=== PATIENT | male | born 1960 | race Caucasian/White ===

== ENCOUNTER 2018-11-04 09:48 | Outpatient (CLI) | payer OTHER, SELFPAY ==
[2018-11-04 11:42] LABS: CREATININE 0.93 mg/dL (0.70-1.30); Calculated LDL 57; Cholesterol 127 mg/dL (50-200); HDL Cholesterol 53 mg/dL (40-60); Potassium 4.8 mmol/L (3.5-5.1); Triglyceride 88 mg/dL (30-150)
== END 2018-11-04 10:08 ==
PROVIDERS: PCP Family Medicine; Visit Provider Family Medicine
DX: E11.65 Type 2 diabetes mellitus with hyperglycemia (principal)
CPT/HCPCS: 36415; 80061; 83721; 82565; 83036; 84132

== ENCOUNTER 2019-01-20 09:22 | Outpatient (CLI) | payer OTHER, SELFPAY ==
[2019-01-20 12:44] LABS: CREATININE 1.06 mg/dL (0.70-1.30); Potassium 4.7 mmol/L (3.5-5.1)
[2019-01-20 12:47] LABS: Hemoglobin A1C 7.5 % (4.5-6.2)
== END 2019-01-20 09:42 ==
PROVIDERS: PCP Family Medicine; Visit Provider Family Medicine
DX: E11.9 Type 2 diabetes mellitus without complications (principal)
CPT/HCPCS: 36415; 82565; 83036; 84132

== ENCOUNTER 2019-04-07 22:45 | Emergency (ER) | payer OTHER, SELFPAY ==
[2019-04-07 22:47] VITALS: BP 135/67; PULSE 113; TEMP 36.3; O2SAT 99
--- NOTE | 2019-04-07 23:02 | ED.GENADUL_ITS ---
Discharge Plan Disposition Patient Disposition: [facility] Condition: Stable Discharge Details Chief Complaint: Urinary Clinical Impression: Left testicular pain Primary Care Provider: Bulmaro Booker ED Provider: Fitz Mas Home Meds and New Rx's Prescriptions: No Action atorvastatin 20 mg tablet 20 mg PO QPM Qty: 90 RF: 3 citalopram 20 mg tablet 20 mg PO DAILY Qty: 90 RF: 4 glimepiride 2 mg tablet 2 mg PO DAILY Qty: 90 RF: 4 hydrochlorothiazide 12.5 mg tablet 12.5 mg PO DAILY Qty: 90 RF: 3 lisinopril 40 mg tablet 40 mg PO DAILY Qty: 90 RF: 4 Janumet 50-1,000 mg tablet 1 tab PO BID Qty: 180 RF: 3 terbinafine HCl 250 mg tablet 250 mg PO DAILY Qty: 28 RF: 0 terbinafine HCl 250 mg tablet 250 mg PO DAILY Qty: 30 RF: 0 TEST STRIP 1 EACH strip 1 ea Miscellaneous DAILY Qty: 90 RF: 4 aspirin [Aspir-Low] 81 MG tablet,delayed release (DR/EC) 1 tab PO DAILY RF: 0 (DME) OneTouch Ultra Test 1 EACH strip 1 ea Miscellaneous DAILY Qty: 90 RF: 4 Medical Decision Making 59 yo male comes in with intermittent left testicle pain that acutely worsened today. He arrives in obvious pain, denies fevers, has had n/v. On exam his left testicle is swollen, tender and I can't elicit a cremasteric reflex. I have high concern for torsion. I spoke with engineer technician and there are no availabe ultrasound techs tonight. Will consult with [facility] accepts in transfer for further management, accepting is dr. Springer. Pt updated on plan and agrees with plan Differential Diagnosis Differential Diagnosis: torsion, orchitis HPI General Mode of arrival: ambulatory . Date/Time Provider Initiated Documentation: 04/07/19 22:46 . Limitations to Documentation: no limitations . Information obtained by: patient . History of Present Illness 59 year old M presents to the emergency department with the chief complaint of testicle pain, described as moderate and severe, and it has been constant. No relieving factors improve symptom(s), No exacerbating factors reported . Patient did receive the following treatments prior to arrival, none Related Data Home Medications Medication Instructions Recorded Confirmed Test Strip 1 ea MISCELLANEOUS DAILY #90 strip 07/29/12 11/26/18 aspirin [Aspir-Low] 1 tab PO DAILY 10/13/13 11/26/18 blood sugar diagnostic [Onetouch #90 strip 09/21/14 11/26/18 Ultra Test Strips] atorvastatin 20 mg tablet 20 mg PO QPM #90 tab 11/26/18 11/26/18 citalopram 20 mg tablet 20 mg PO DAILY #90 tab-cap 11/26/18 11/26/18 glimepiride 2 mg tablet 2 mg PO DAILY #90 tab-cap 11/26/18 11/26/18 hydrochlorothiazide 12.5 mg tablet 12.5 mg PO DAILY #90 tab-cap 11/26/18 11/26/18 lisinopril 40 mg tablet 40 mg PO DAILY #90 tab-cap 11/26/18 11/26/18 sitagliptin 50 mg-metformin 1,000 1 tab PO BID #180 tab-cap 11/26/18 11/26/18 mg tablet terbinafine HCl 250 mg tablet 250 mg PO DAILY #28 tab 11/26/18 11/26/18 terbinafine HCl 250 mg tablet 250 mg PO DAILY #30 tab 11/26/18 11/26/18 Previous Rx's Medication Instructions Recorded atorvastatin 20 mg tablet 20 mg PO QPM #90 tab 11/26/18 citalopram 20 mg tablet 20 mg PO DAILY #90 tab-cap 11/26/18 glimepiride 2 mg tablet 2 mg PO DAILY #90 tab-cap 11/26/18 hydrochlorothiazide 12.5 mg tablet 12.5 mg PO DAILY #90 tab-cap 11/26/18 lisinopril 40 mg tablet 40 mg PO DAILY #90 tab-cap 11/26/18 sitagliptin 50 mg-metformin 1,000 1 tab PO BID #180 tab-cap 11/26/18 mg tablet terbinafine HCl 250 mg tablet 250 mg PO DAILY #28 tab 11/26/18 terbinafine HCl 250 mg tablet 250 mg PO DAILY #30 tab 11/26/18 Allergies Allergy/AdvReac Type Severity Reaction Status Date / Time No Known Allergies Allergy Unverified 04/07/19 22:55 General Stated Complaint: Urinary AMNA: 2 Review of Systems All systems reviewed & are unremarkable except as noted in HPI and below Constitutional Constitutional: Denies chills, Denies fever(s) and Denies weakness Cardiovascular Cardiovascular: Denies dyspnea Respiratory Respiratory: Denies cough and Denies dyspnea Gastrointestinal Gastrointestinal: Denies abdominal pain, Denies nausea and Denies vomiting Musculoskeletal Musculoskeletal: Denies joint swelling Neurologic Neurologic: Denies weakness PFSH Family History Mother Alzheimer disease Father Diabetes Brother Personal history of malignant neoplasm PROSTATE Exam Const General: other (in pain) Orientation: alert HENMT Head: normal to inspection Ears: external ears normal General nose exam: external nose normal Mouth: moist mucous membranes Eyes General: appearance normal, both eyes and all related structures Neck Neck: normal visual inspection Resp Effort & Inspection: normal respiratory effort and able to speak in complete sentences Cardio Rate: regular rate Penis: normal penis Scrotum: cremasteric reflex absent Skin General skin exam: no rashes or lesions noted Neuro General: alert and oriented x3 Extrem General: normal to inspection Psych Mental Status: mental status grossly normal Course Vital Signs Vital signs: Vital Signs Temperature 36.3 C L 04/07/19 22:47 Pulse 113 H 04/07/19 22:47 Pulse Oximetry 99 04/07/19 22:47 Temperature 36.3 C L 04/07/19 22:47 Pulse 113 H 04/07/19 22:47 Pulse Oximetry 99 04/07/19 22:47 Oxygen Delivery Method Room Air 04/07/19 22:47 Oxygen Flow Rate 0 04/07/19 22:47 Pain Level 10 04/07/19 22:47
[2019-04-07] MEDS: Ondansetron 4 MG/2 ML VIAL (23:06)
[2019-04-07 23:07] LABS: Bilirubin Negative (Negative); Blood Negative (Negative); Clarity Clear (Clear); Glucose Negative (Negative); Ketones Trace mg/dL (Negative); Leukocyte Esterase Negative (Negative); Nitrite Negative (Negative); pH 5.5 (5-8)
[2019-04-07] MEDS: Normal Saline 1,000 ML 1000 ML IV (23:08)
[2019-04-07] MEDS: Normal Saline Flush 10 ML SYR IVP (23:09)
[2019-04-07 23:17] LABS: Abs Immature Grans 0.04 k/cumm (0.0-0.09); Absolute Basophil Count 0.02 k/cumm (0.0-0.2); Absolute Eosinophil Count 0.14 k/cumm (0.0-0.7); Absolute Lymphocyte Count 2.51 k/cumm (1.2-3.4); Absolute Monocyte Count 1.99 k/cumm (0.11-0.7); Absolute Neutrophil Count 10.82 k/cumm (1.2-6.7); Basophils % 0.1; Eosinophils % 0.9; HCT 46.1 % (40.0-50.0); HGB 15.6 g/dL (13.5-17.5); Immature Grans % 0.3; Lymphocytes % 16.2; Mean Corp. HGB Concentration 33.8 g/dL (32.0-36.0); Mean Corpuscular Hemoglobin 30.5 pg (27.0-33.0); Monocytes % 12.8; Neutrophils % 69.7; Platelet Count 205 x1000/uL (130-400); RBC 5.12 m/cumm (4.50-6.00); RBC Distribution Width 12.8 % (11.8-14.1); White Blood Cell Count 15.52 k/cumm (4.4-10.8)
[2019-04-07] MEDS: Nicotine 21 MG/24 HR PATCH (23:24)
[2019-04-07] MEDS: MORPHine 10 MG/ML VIAL (23:25)
[2019-04-07 23:29] LABS: ALT 27 U/L (16-63); AST 13 U/L (15-37); Albumin 3.9 g/dL (3.4-5.0); Alkaline Phosphatase 92 U/L (46-116); Anion Gap 12.6 mmol/L (3-11); BUN 30 mg/dL (7-18); Bilirubin, Total 0.6 mg/dL (0.2-1.0); CO2 23.4 mmol/L (21.0-32.0); CREATININE 1.38 mg/dL (0.70-1.30); Calcium 9.5 mg/dL (8.5-10.1); Chloride 99 mmol/L (98-107); Estimated GFR 53.11 (mL/min/1.73m2); Glucose 179 mg/dL (70-100); Potassium 4.5 mmol/L (3.5-5.1); Sodium 135 mmol/L (136-145); Total Protein 7.7 g/dL (6.4-8.2)
[2019-04-07 23:32] LABS: Diff Comment Agrees w/ Instrument; RBC Morphology Normal
[2019-04-07 23:35] LABS: PTT Activated 25.9 sec (21.0-31.4)
[2019-04-07] MEDS: HYDROmorphone 2 MG/ML VIAL (23:41)
[2019-04-07 23:43] VITALS: BP 136/79; PULSE 118; RESP 21; O2SAT 99
== END 2019-04-07 23:35 | disposition short-term general hospital (02) ==
PROVIDERS: Emergency Provider Emergency Medicine; PCP Family Medicine
DX: N50.812 Left testicular pain (principal)
CPT/HCPCS: 80053; 96361; 96374; 96375; 96376; 99284; 81003; 85025; 85610; 85730; J2270; J2405

== ENCOUNTER 2019-05-27 09:41 | Outpatient (CLI) | payer OTHER, SELFPAY ==
[2019-05-27 12:47] LABS: Hemoglobin A1C 7.5 % (3.8-5.6)
[2019-05-27 12:48] LABS: CREATININE 0.81 mg/dL (0.70-1.30)
[2019-05-30 11:27] LABS: PSA, Screening 3.8 ng/mL (0.0-3.5)
== END 2019-05-27 10:01 ==
PROVIDERS: PCP Family Medicine; Visit Provider Family Medicine
DX: E11.9 Type 2 diabetes mellitus without complications (principal); Z12.5 Encounter for screening for malignant neoplasm of prostate
CPT/HCPCS: 36415; 84153; 82565; 83036

== ENCOUNTER 2020-01-27 01:20 | Outpatient (CLI) | payer OTHER, SELFPAY ==
[2020-01-27 13:01] LABS: Hemoglobin A1C 8.1 % (<5.7)
[2020-01-27 22:56] LABS: PSA, Diagnostic 3.2 ng/mL (0.0-3.5)
== END 2020-01-27 01:40 ==
PROVIDERS: PCP Family Medicine; Visit Provider Family Medicine
DX: R73.9 Hyperglycemia, unspecified (principal); C61 Malignant neoplasm of prostate
CPT/HCPCS: 36415; 83036; 84153

== ENCOUNTER 2020-09-14 17:24 | Outpatient (REF) | payer OTHER, SELFPAY ==
[2020-09-14 21:04] LABS: Hemoglobin A1C 9.1 % (<5.7)
[2020-09-14 21:07] LABS: CREATININE 1.1 mg/dL (0.70-1.30); Calculated LDL 82 mg/dL (<100); Cholesterol 164 mg/dL (<200); HDL Cholesterol 51 mg/dL (40-60); Triglyceride 158 mg/dL (<150)
== END 2020-09-14 17:25 | disposition home or self-care (01) ==
LOC: NCHCN 17:24
PROVIDERS: PCP Family Medicine; Visit Provider Family Medicine
DX: E78.5 Hyperlipidemia, unspecified (principal); I10 Essential (primary) hypertension; R73.9 Hyperglycemia, unspecified
CPT/HCPCS: 80061; 82565; 83036; 84132

== ENCOUNTER 2022-01-29 10:38 | Outpatient (REF) | payer OTHER, SELFPAY ==
[2022-01-29 22:59] LABS: Albumin ug/mg Crea 246 (<30)
== END 2022-01-29 10:39 | disposition home or self-care (01) ==
LOC: LBN 10:38
PROVIDERS: PCP Family Medicine; Visit Provider Family Medicine
DX: E11.9 Type 2 diabetes mellitus without complications (principal)
CPT/HCPCS: 82043; 82570

== ENCOUNTER 2022-07-10 16:24 | Outpatient (REF) | payer OTHER, SELFPAY ==
--- OUTSIDE RECORDS SUMMARY | 2022-07-10 16:28 | XMS_ITS ---
Author Name Hnanah Ceja Address [address], [place] [id number] Organization [facility] Address [address], [place] [id number] Care Team Providers Care Drawing In Machine Tender Name Role Phone Hannah Ceja Unavailable [phone] PROBLEMS Type Condition ICD9-CM Code [id number] Code Onset Dates Condition Status SNOMED Code Problem Diverticulosis 562.10 Active 595882815 Problem Colon Polyp 211.3 Active 47299935 Problem Internal hemorrhoids 455.0 Active 48965970 ALLERGIES No Known Allergies ENCOUNTERS Encounter Location Date Diagnosis [facility] Department [address] [place] [id number] Jan, Encounter for other administrative examinations [address]02.[address] [place] [address] [place] [id number] Jan, Encounter for other administrative examinations Z02.[address] [address] Occupational [facility] Department [address] [place] [address] [id number] Oct, Encounter for other administrative examinations [address] [place] [address] [place] [address] [id number] Oct, Encounter for other administrative examinations [address] [place] [address] [place] [id number] Aug, Encounter for other administrative examinations Z02. [facility]. [address], [address] [place], [place] [id number] Aug, [facility] [address] [place] [address] [id number] May, Encounter for other administrative examinations Z02.89 [facility] Department [address], [place] [id number] Dec, Encounter for other administrative examinations Z02.89 [facility] [address] [id number] Jan, Colon Polyp 211.3 ; Diverticulosis 562.10 and Internal hemorrhoids 455.[address] [id number] Nov, Colon Polyp 211.3 ; Rectal polyp 569.0 ; Diverticulosis 562.10 and Internal hemorrhoids 455.0 [facility] [address] [id number] Nov, [facility] [address] [id number] Oct, [facility] [address] [id number] Oct, [facility] [address] [id number] Oct, [facility] [address] [id number] September, IMMUNIZATIONS No Known Immunizations SOCIAL HISTORY Never Assessed REASON FOR REFERRAL FUNCTIONAL STATUS PLAN OF CARE VITAL SIGNS Height 5 ft 8 in in 2015-02-09 Weight 202 lbs 2015-02-09 Heart Rate 72 /min 2015-02-09 Respiratory Rate 16 /min 2015-02-09 BMI 30.71 kg/m2 2015-02-09 Blood pressure systolic 134 mm Hg Blood pressure diastolic 79 mm Hg 2015-01 MEDICATIONS Medication Instructions Dosage Frequency Start Date End Date Duration Status SITagliptin-metFORMIN HCl 50-1000 MG Orally Twice a day 1 tablet with meals 12h 30 day(s) Active Semaglutide(0.25 or 0.5MG/DOS) 2 MG/1.5ML as directed Active Aspirin 81 MG Orally Once a day 1 tablet 24h Active Terbinafine HCl 250 MG Orally Once a day 1 tablet 24h 10 day(s) Active metFORMIN HCl 1000 MG Orally Once a day 1 tablet with meals 24h Not-Sang ing hydroCHLOROthiazide 12.5 MG Orally Once a day 1 capsule in the morning 24h 30 day(s) Active Citalopram Hydrobromide 20 MG Orally Once a day 1 tablet 24h Active Glimepiride 2 MG Orally Once a day 1 tablet with breakfast or the first main meal of the day 24h Active One touch ultra test strips as directed Active Lisinopril 40 MG Orally Once a day 1 tablet 24h 30 day(s) Active Atorvastatin Calcium 20 MG Orally Once a day 1 tablet 24h Active PROCEDURES Procedure Date Ordered Result Body Site OCD Breath Alcohol Drug Testing May 31, 2020 OCD Urine Drug Screen (collection only) September 05, 2021 COLONOSCOPY & COLD BIOPSY POLYPECTOMY December 14, 2014 COLONOSCOPY SNARE POLYPEC December 14, 2014 OCD Urine Drug Screen (collection only) May 31, 2020 OCD Breath Alcohol Drug Testing Feb 07, 2022 OCD Urine Drug Screen (collection only) Feb 07, 2022 OCD Urine Drug Screen (collection only) Jan 18, 2020 OCD Breath Alcohol Drug Testing November 15, 2021 OCD Urine Drug Screen (collection only) November 15, 2021 RESULTS Name Result Date Reference Range OCD BREATH ALCOHOL DRUG TESTING 2022-01-23 6 OCD URINE COLLECTION 2022-02-07 OCD BREATH ALCOHOL DRUG TESTING 2021-10-24 4 OCD URINE COLLECTION 2021-11-15 OCD URINE COLLECTION 2020-05-31 OCD BREATH ALCOHOL DRUG TESTING 7 OCD URINE COLLECTION 2020-01-18 Colonoscopy REASON FOR VISIT BAT, OCC bat, occ udc, OCC udc , OCC bat, OCC bat, OCC udc, OCC udc , OCC udc, OCC udc , ENT VESSEL SLAGMAN Lesion of nostril, Chart Preload, OCC udc and bat, OCC udc , OCC udc, GI fu endo, GI fu 12/14 endo- pt cld needed to r/s-mk, GI Screening Colonoscopy, ins info, Golytely Rx, Preload clinical data, asking if pt is scheduled, returning colonscopy call Insurance Providers Health Insurance Type Health Plan Insurance Address Health Plan Insurance Phone Health Plan Insurance Name Health Plan Coverage Dates Member ID Patient Relationship to Subscriber Patient Address Patient Phone Patient Name Patient Date of Subscriber ID Subscriber Name Subscriber Date of Group No BCBS OUT OF AREA [address] [facility] [id number] BC[employer] OUT OF AREA self Obey Rodrigues [id number] [employer] [address] [facility] [address] [employer] self Obey Rodrigues [id number] OCD [employer] OBEY REAES [address] [address] [id number] [employer] self Obey Rodrigues [id number] [facility]/[place] B[place] (Write Off) [address] [facility] [address] [place] - DO [place] B[place] (Write Off) self Obey Rodrigues [id number] [employer] [address] [address] [facility] [address] [employer] self Obey Reaes [id number] [employer] [address] [address] [facility] [address] [employer] self Obey Rodrigues [id number]
[2022-07-10 22:09] LABS: COMMENT (LAB VIEW ONLY) 62.75 mg/dL
[2022-07-10 22:18] LABS: Microalb ug/mg Crea 365.1 ug/mg Cr
== END 2022-07-10 16:25 | disposition home or self-care (01) ==
LOC: LBN 16:24
PROVIDERS: PCP Family Medicine; Visit Provider Family Medicine
DX: R80.9 Proteinuria, unspecified (principal)
CPT/HCPCS: 82043; 82570

== ENCOUNTER 2024-02-09 10:24 | Outpatient (CLI) | payer OTHER, SELFPAY ==
[2024-02-09 12:18] LABS: Abs Immature Grans 0.03 10^3/uL (0.0-0.06); Absolute Basophil Count 0.06 10^3/uL (0.0-0.2); Absolute Eosinophil Count 0.17 10^3/uL (0.0-0.7); Absolute Lymphocyte Count 2.01 10^3/uL (1.2-3.4); Absolute Monocyte Count 0.85 10^3/uL (0.1-0.8); Absolute Neutrophil Count 5.79 10^3/uL (1.2-6.7); Basophils % 0.7 %; Eosinophils % 1.9 %; HCT 46.8 % (40.0-50.0); HGB 15.8 g/dL (13.5-17.5); Immature Grans % 0.3 %; Lymphocytes % 22.6 %; MCH 31.7 pg (27.0-33.0); MCHC 33.8 % (32.0-36.0); MCV 94 fL (80-95); MPV 12.5 fL (8.0-11.0); Monocytes % 9.5 %; Platelet Count 137 10^3/uL (130-400); RBC 4.99 10^6/uL (4.36-5.78); RDW 12.6 % (11.8-14.1); RDW-SD 43.4 fL; WBC 8.91 10^3/uL (4.4-10.8)
[2024-02-09 12:29] LABS: Hemoglobin A1C 7.1 % (<5.7)
[2024-02-09 12:32] LABS: ALT 32 U/L (16-63); AST 18 U/L (15-37); Alkaline Phosphatase 74 U/L (46-116); Anion Gap 5.7 mmol/L (3-11); BUN 19 mg/dL (7-18); Bilirubin, Total 0.48 mg/dL (0.2-1.0); CO2 29.3 mmol/L (21.0-32.0); CREATININE 1.3 mg/dL (0.70-1.30); Calcium 9.6 mg/dL (8.5-10.1); Calculated LDL 47 mg/dL (<100); Chloride 102 mmol/L (98-107); Cholesterol 121 mg/dL (<200); Estimated GFR 62.11 (mL/min/1.73m2); Glucose 200 mg/dL (74-106); HDL Cholesterol 64 mg/dL (40-60); Potassium 4.9 mmol/L (3.5-5.1); Sodium 137 mmol/L (136-145); Total Protein 7.3 g/dL (6.4-8.2); Triglyceride 52 mg/dL (<150)
[2024-02-09 20:44] LABS: PSA, Screening 6.4 ng/mL (<=4.5)
== END 2024-02-09 10:25 | disposition home or self-care (01) ==
LOC: LOS 10:27
PROVIDERS: PCP Family Medicine; Visit Provider Family Medicine
DX: Z12.5 Encounter for screening for malignant neoplasm of prostate (principal); D64.9 Anemia, unspecified; E78.5 Hyperlipidemia, unspecified; R10.9 Unspecified abdominal pain; E11.9 Type 2 diabetes mellitus without complications
CPT/HCPCS: 36415; 80053; 80061; 84153; 83036; 85025

== ENCOUNTER 2025-04-19 03:20 | Outpatient (CLI) | payer OTHER, SELFPAY ==
[2025-04-19 09:28] LABS: Hemoglobin A1C 8.0 % (<5.7)
== END 2025-04-19 03:21 | disposition home or self-care (01) ==
LOC: LBO 03:20
PROVIDERS: PCP Family Medicine; Visit Provider Family Medicine
DX: R73.9 Hyperglycemia, unspecified (principal)
CPT/HCPCS: 36415; 83036